=== PATIENT | female | born 1945 | race African-American/Black ===

== ENCOUNTER 2018-12-15 14:27 | Emergency (ER) | payer SELFPAY | END 2018-12-15 14:34 | disposition left against medical advice (07) | LOC: ER 14:33 | DX: R10.9 Unspecified abdominal pain (principal); Z53.21 Procedure and treatment not carried out due to patient leaving prior to being seen by health care provider ==

== ENCOUNTER 2019-07-04 17:51 | Inpatient (IN) | payer MEDICARE, OTHER ==
[~2019-07-04] VITALS: Ht 162.6 cm; Wt 89.8 kg
[2019-07-04 18:53] LABS: BASOPHILS % 0.3 % (0.0-2.0); EOSINOPHILS % 0.7 % (0.0-5.0); HEMATOCRIT. 39.9 % (36.0-48.0); HEMOGLOBIN. 13.2 g/dL (12.0-16.0); LYMPHOCYTES % 36.9 % (20.0-50.0); MEAN CORPUSCULAR HEMOGLOBIN 31.6 pg (28.0-32.0); MEAN CORPUSCULAR VOLUME 95.8 fL (81.0-99.0); MEAN PLATELET VOLUME 8.8 fl (7.4-10.4); MONOCYTES % 9.5 % (2.0-8.0); NEUTROPHILS % 52.6 % (40.0-76.0); PLATELET 218 x1000/uL (130-400); RED BLOOD CELL COUNT 4.17 mill/uL (4.2-5.4); RED CELL DISTRIBUTION WIDTH 13.6 % (11.6-14.6)
[2019-07-04 18:59] LABS: CHLORIDE 108 mEq/L (98-107)
[2019-07-04 19:04] LABS: ETHANOL BLOOD < 10 mg/dL
[2019-07-04] MEDS ORDERED: IOHEXOL-350 100 ML BOTTLE ONE (19:35)
[2019-07-05 02:55] LABS: CLARITY URINE CLEAR (CLEAR); COLOR URINE YELLOW (YELLOW); KETONES URINE NEGATIVE (NEGATIVE); LEUKOCYTE ESTERASE URINE NEGATIVE (NEGATIVE); NITRITE URINE NEGATIVE (NEGATIVE); OCCULT BLOOD URINE NEGATIVE (NEGATIVE); PROTEIN URINE NEGATIVE (NEGATIVE); SPECIFIC GRAVITY URINE 1.024 (1.005-1.030); UROBILINOGEN URINE 0.2 E.U./dL (0.2-1.0)
[2019-07-05 03:11] LABS: *AMPHETAMINES SCREEN URINE NEGATIVE (NEGATIVE); *BARBITURATES SCREEN URINE NEGATIVE (NEGATIVE); *BENZODIAZEPINES SCREEN URINE NEGATIVE (NEGATIVE); *COCAINE SCREEN URINE NEGATIVE (NEGATIVE); METHADONE URINE SCREEN NEGATIVE (NEGATIVE); OPIATES URINE SCREEN NEGATIVE (NEGATIVE)
[2019-07-05 03:12] LABS: CANNABINOID URINE SCREEN NEGATIVE (NEGATIVE); PHENCYCLIDINE URINE SCREEN NEGATIVE (NEGATIVE)
[2019-07-05] MEDS ORDERED: CLONIDINE 0.1MG TABLET PO SCH (08:00)
[2019-07-05] MEDS ORDERED: ACETAMINOPHEN 325MG TABLET PO PRN (09:00)
[2019-07-05] MEDS ORDERED: ASPIRIN 325MG EC TABLET PO SCH (09:00)
[2019-07-05] MEDS ORDERED: ONDANSETRON HCL 4MG/2ML INJ IV PRN (09:00)
[2019-07-05] MEDS ORDERED: DOCUSATE SODIUM 100MG CAPSULE PO PRN (09:00)
[2019-07-05 11:30] VITALS: BP 131/76
[2019-07-05 11:48] VITALS: BP 131/76
[2019-07-05 12:00] VITALS: BP 122/83
[2019-07-05] MEDS ORDERED: LORAZEPAM 2MG/ML CPJ IV PRN (12:15)
[2019-07-05] MEDS ORDERED: HYDROCODONE/ACETAMINOPHEN 5/325MG TABLET PO PRN (12:15)
[2019-07-05] MEDS ORDERED: DIPHENHYDRAMINE 50MG/ML VIAL IV PRN (12:45)
[2019-07-05] MEDS ORDERED: IPRATROPIUM/ALBUTEROL 0.5-3(2.5)MG/3ML NEB HHN PRN (12:45)
[2019-07-05] MEDS: ENOXAPARIN 40MG/0.4ML SYR SUBCUT SCH (13:10)
[2019-07-05 13:54] LABS: T4 FREE 0.8 ng/dL (0.76-1.46)
[2019-07-05 15:43] LABS: BASOPHILS % 0.5 % (0.0-2.0); EOSINOPHILS % 0.3 % (0.0-5.0); HEMATOCRIT. 40.4 % (36.0-48.0); HEMOGLOBIN. 13.2 g/dL (12.0-16.0); LYMPHOCYTES % 29.4 % (20.0-50.0); MEAN CORPUSCULAR HEMOGLOBIN 31.3 pg (28.0-32.0); MEAN CORPUSCULAR VOLUME 96.1 fL (81.0-99.0); MEAN PLATELET VOLUME 9.1 fl (7.4-10.4); NEUTROPHILS % 57.8 % (40.0-76.0); PLATELET 213 x1000/uL (130-400); RED BLOOD CELL COUNT 4.21 mill/uL (4.2-5.4); RED CELL DISTRIBUTION WIDTH 13.5 % (11.6-14.6)
[2019-07-05 16:00] VITALS: BP 168/94
[2019-07-05] MEDS: HYDRALAZINE 20MG/ML VIAL IV PRN ×2 (16:20→22:46)
[2019-07-05 17:09] LABS: PROTHROMBIN TIME 10.8 sec (9.6-11.0)
[2019-07-05 17:11] LABS: CHLORIDE 106 mEq/L (98-107)
[2019-07-05 17:20] LABS: CREATINE KINASE 64 IU/L (26-192)
[2019-07-05 17:22] LABS: CREATINE KINASE MB FRACTION 1.1 ng/mL (0.5-3.6)
[2019-07-05 20:00] VITALS: BP 173/101
[2019-07-05] MEDS: ASPIRIN 81MG EC TABLET PO SCH (21:05)
[2019-07-05] MEDS: ATORVASTATIN CALCIUM 40MG TABLET PO SCH (21:05)
[2019-07-06] VITALS (8 sets, daily range): BP systolic 145–169; BP diastolic 68–95
[2019-07-06 07:13] LABS: HEMATOCRIT 38.3 % (36.0-48.0); HEMOGLOBIN 12.4 g/dL (12.0-16.0); MEAN CORPUSCULAR HEMOGLOBIN 31.1 pg (28.0-32.0); MEAN CORPUSCULAR VOLUME 95.7 fL (81.0-99.0); PLATELET 234 x1000/uL (130-400); RED CELL DISTRIBUTION WIDTH 13.8 % (11.6-14.6)
[2019-07-06 07:41] LABS: CHLORIDE 106 mEq/L (98-107)
[2019-07-06 07:43] LABS: VITAMIN B12 SERUM 195 pg/mL (211-911)
[2019-07-06] MEDS ORDERED: GADOBENATE DIMEGLUMINE 529 MG/ML 10ML IV ONE (09:19)
[2019-07-06] MEDS: ASPIRIN 81MG EC TABLET PO SCH (10:30)
[2019-07-06] MEDS: ENOXAPARIN 40MG/0.4ML SYR SUBCUT SCH (12:00)
[2019-07-06] MEDS: ATORVASTATIN CALCIUM 40MG TABLET PO SCH (20:57)
[2019-07-06] MEDS: AMLODIPINE 5MG TABLET PO SCH (20:58)
[2019-07-07] VITALS: BP 169/98
[2019-07-07 04:00] VITALS: BP 167/97
[2019-07-07] MEDS: HYDRALAZINE 20MG/ML VIAL IV PRN (06:12)
[2019-07-07 06:44] LABS: CHLORIDE 107 mEq/L (98-107)
[2019-07-07 06:53] LABS: HEMATOCRIT 39.2 % (36.0-48.0); HEMOGLOBIN 12.9 g/dL (12.0-16.0); MEAN CORPUSCULAR HEMOGLOBIN 31.3 pg (28.0-32.0); MEAN CORPUSCULAR VOLUME 95.4 fL (81.0-99.0); PLATELET 229 x1000/uL (130-400); RED BLOOD CELL COUNT 4.11 mill/uL (4.2-5.4); RED CELL DISTRIBUTION WIDTH 13.9 % (11.6-14.6)
[2019-07-07 08:00] VITALS: BP_SYST 147; BP_SYST 161; BP_DIAS 105; BP_DIAS 77
[2019-07-07] MEDS: CYANOCOBALAMIN 1000MCG TABLET PO SCH (09:48)
[2019-07-07] MEDS: AMLODIPINE 5MG TABLET PO SCH (09:49)
[2019-07-07] MEDS: ASPIRIN 81MG EC TABLET PO SCH (09:49)
[2019-07-07] MEDS ORDERED: POTASSIUM CHLORIDE 20MEQ TABLET SR PO NR (10:15)
[2019-07-07] MEDS ORDERED: LACTULOSE 20G/30ML UDC PO NR (11:00)
[2019-07-07 12:00] VITALS: BP 167/86
[2019-07-07] MEDS: METOPROLOL TARTRATE 25MG TABLET PO SCH ×2 (12:58→21:38)
[2019-07-07] MEDS: DOCUSATE SODIUM 100MG CAPSULE PO SCH ×2 (12:59→16:29)
[2019-07-07] MEDS: ENOXAPARIN 40MG/0.4ML SYR SUBCUT SCH (13:00)
[2019-07-07 15:37] VITALS: BP 167/86
[2019-07-07] MEDS: LOSARTAN POTASSIUM 25 MG TABLET PO SCH ×2 (16:28→23:18)
[2019-07-07 20:00] VITALS: BP 151/83
[2019-07-07] MEDS ORDERED: METOPROLOL TARTRATE 25MG TABLET PO SCH (21:00)
[2019-07-07] MEDS: ATORVASTATIN CALCIUM 40MG TABLET PO SCH (21:38)
[2019-07-08] VITALS: BP 146/81
[2019-07-08 04:00] VITALS: BP 156/81
[2019-07-08 08:00] VITALS: BP 123/86
[2019-07-08] MEDS: DOCUSATE SODIUM 100MG CAPSULE PO SCH (09:10)
[2019-07-08] MEDS: ASPIRIN 81MG EC TABLET PO SCH (09:10)
[2019-07-08] MEDS: CYANOCOBALAMIN 1000MCG TABLET PO SCH (09:10)
[2019-07-08] MEDS: LOSARTAN POTASSIUM 25 MG TABLET PO SCH (09:10)
[2019-07-08 12:00] VITALS: BP 122/89
[2019-07-08] MEDS: METOPROLOL TARTRATE 25MG TABLET PO SCH (13:07)
[2019-07-08] MEDS: ENOXAPARIN 40MG/0.4ML SYR SUBCUT SCH (13:07)
[2019-07-08 16:00] VITALS: BP 125/74
[2019-07-08] MEDS ORDERED: LOSA25TA3 PO (16:12)
[2019-07-08] MEDS ORDERED: LIP40 MT (16:12)
[2019-07-08] MEDS ORDERED: ASPI-1497 MT (16:12)
[2019-07-08 16:27] LABS: BASOPHILS % 0.4 % (0.0-2.0); EOSINOPHILS % 1.2 % (0.0-5.0); HEMATOCRIT. 37.6 % (36.0-48.0); HEMOGLOBIN. 12.2 g/dL (12.0-16.0); LYMPHOCYTES % 29.2 % (20.0-50.0); MEAN CORPUSCULAR HEMOGLOBIN 31.3 pg (28.0-32.0); MEAN CORPUSCULAR VOLUME 96.4 fL (81.0-99.0); MONOCYTES % 11.5 % (2.0-8.0); NEUTROPHILS % 57.7 % (40.0-76.0); PLATELET 227 x1000/uL (130-400); RED CELL DISTRIBUTION WIDTH 13.8 % (11.6-14.6)
[2019-07-08 16:36] LABS: CHLORIDE 107 mEq/L (98-107)
[2019-07-08 17:12] VITALS: BP 125/74
== END 2019-07-08 18:35 | disposition home or self-care (01) | DRG 64 ==
LOC: ER 17:51 → EDBEDREQ 19:21 → EDBEDREQTM 19:21 → EDBEDREQ 19:49 → 6WST 07-05 00:52 → ENRESERV 07-05 09:23
PROVIDERS: ADMIT Internal Medicine; ATTEND Internal Medicine
PROC: 4A00X4Z Measurement of Central Nervous Electrical Activity, External Approach (ICD-10-PCS; principal; 2019-07-07)
DX: I63.542 Cerebral infarction due to unspecified occlusion or stenosis of left cerebellar artery (principal); I50.43 Acute on chronic combined systolic (congestive) and diastolic (congestive) heart failure; I42.9 Cardiomyopathy, unspecified; I47.2 Ventricular tachycardia; I47.1 Supraventricular tachycardia; E78.5 Hyperlipidemia, unspecified; I11.0 Hypertensive heart disease with heart failure; J45.909 Unspecified asthma, uncomplicated; I77.819 Aortic ectasia, unspecified site; E53.8 Deficiency of other specified B group vitamins; E78.00 Pure hypercholesterolemia, unspecified; K57.90 Diverticulosis of intestine, part unspecified, without perforation or abscess without bleeding; K59.00 Constipation, unspecified; R47.01 Aphasia; Z79.82 Long term (current) use of aspirin; Z79.899 Other long term (current) drug therapy; Z91.14 Patient's other noncompliance with medication regimen; Z91.19 Patient's noncompliance with other medical treatment and regimen
CPT/HCPCS: 36415; 70496; 70551; 70552; 71045; 71250; 74176; 80048; 80053; 80061; 80305; 80320; 81003; 82550; 82553; 82607; 82962; 83036; 83735; 83880; 84439; 84443; 84484; 85025; 85027; 93005; 93306; 93880; 93970; 95816; 97162; 97166; 99285; A9577; J0360; J1650; Q9967; G0480